=== PATIENT | female | born 1985 | race Hispanic/Latino ===

== ENCOUNTER 2018-05-19 05:52 | Day surgery (SDC) | payer OTHER ==
[2018-05-18 12:40] VITALS: BP 119/57
[~2018-05-19] VITALS: Ht 160 cm; Wt 77.0 kg
[2018-05-19] VITALS (13 sets, daily range): BP systolic 94–137; BP diastolic 46–71
[2018-05-19] MEDS ORDERED: LACTATED RINGERS 1000ML 1,000 ML IV ONE (06:30)
[2018-05-19] MEDS ORDERED: LIDOCAINE PF 2% 5ML ABBOJECT ONE (06:57)
[2018-05-19] MEDS ORDERED: ROCURONIUM 10MG/1ML SYR 10 MG/ML ML ONE (06:57)
[2018-05-19] MEDS ORDERED: PROPOFOL 10 MG/ML 20ML VIAL IV ONE (06:57)
[2018-05-19] MEDS ORDERED: MIDAZOLAM HCL 1 MG/ML 2ML VIAL ONE (06:57)
[2018-05-19] MEDS ORDERED: FENTANYL CITRATE PF 50 MCG/1 ML 2ML VIAL ONE ×2 (06:58→07:47)
[2018-05-19] MEDS ORDERED: ONDANSETRON HCL 4 MG/2 ML VIAL ONE (07:00)
[2018-05-19] MEDS ORDERED: BUPIVACAINE/PF 0.25% 30ML VIAL IJ ONE (08:03)
[2018-05-19] MEDS ORDERED: KETOROLAC TROMETHAMINE 30MG/ML ONE (08:34)
[2018-05-19] MEDS ORDERED: GLYCOPYRROLATE 1 MG/5 ML SYRINGE ONE (08:35)
[2018-05-19] MEDS ORDERED: NEOSTIGMINE 5MG/5ML SYR IV ONE (08:35)
== END 2018-05-19 10:45 | disposition home or self-care (01) ==
LOC: DAH 05:52
PROVIDERS: ATTEND Obstetrics & Gynecology
DX: Z30.2 Encounter for sterilization (principal); Z79.899 Other long term (current) drug therapy
CPT/HCPCS: 36415; 58670; 84702; A4215; A4351; A4606; A4649; C1769 ×2; J1885; J2001; J2250; J2405; J2704; J2710; J3010 ×2; J3490 ×2; J7120

== ENCOUNTER → 2023-03-17 | Outpatient (CLI) | payer BC | END | disposition home or self-care (01) | LOC: RAH 09:51 | PROVIDERS: ATTEND Obstetrics & Gynecology | DX: N60.02 Solitary cyst of left breast (principal); N60.01 Solitary cyst of right breast; N64.4 Mastodynia; R10.2 Pelvic and perineal pain; N63.0 Unspecified lump in unspecified breast; R92.2 Inconclusive mammogram | CPT/HCPCS: 76830; 77066 ==